=== PATIENT | male | born 1990 | race Caucasian/White ===

== ENCOUNTER 2018-09-07 12:03 | Day surgery (SDC) | payer BC ==
[~2018-09-07] VITALS: Ht 188 cm; Wt 93.0 kg
[2018-09-07 12:38] VITALS: Ht 188 cm; Wt 93.0 kg
[2018-09-07 12:40] VITALS: BP 142/83; PULSE 83; RESP 16
[2018-09-07] MEDS ORDERED: CEFAZOLIN 2 GM/50 ML (PMX) 50 ML IVPB ONE (13:00)
[2018-09-07] MEDS ORDERED: SOD CHLORIDE 0.9% 1,000 ML IV ONE (13:00)
[2018-09-07] MEDS ORDERED: BUPIVACAINE 0.25% (MPF) 30 ML INJ ONE (13:58)
[2018-09-07] MEDS ORDERED: POLYMYXIN/BACITRACIN 1L IRRIG ONE (13:58)
--- NOTE | 2018-09-07 15:17 | PREAC ---
Date/Time of Note Date/Time of Note DATE: 09/07/18 TIME: 15:16 Anesthesia Eval and Record Evaluation Time Pre-Procedure Interview DATE: 09/07/18 TIME: 15:16 Age 28 Sex male NPO: 8 hrs Preoperative diagnosis right inguinal hernia Planned procedure right inguinal hernia repair Past Medical History Past Medical History: Includes Pulm: Asthma Surgery & Anesthesia Issues No known issue Meds Anticoagulation: No Beta Cristóbal within 24 hr: No Reason Beta Cristóbal not given: Pt. not on B-Cristóbal No Active Prescriptions or Reported Meds Current Medications Sodium Chloride 1,000 ml @ 75 mls/hr [id number] ONCE IV Last administered on at 12:37; Admin Dose 75 MLS/HR; Start 09/07/18 at 13:00; Stop 09/08/18 at 02:19 Meds reviewed: Yes Allergies Coded Allergies: No Known Allergy (Unverified , 09/07/18) Allergies Reviewed: Yes Labs/Studies Labs Reviewed: Reviewed by anesthesiologist Result Diagram: 09/07/18 1230 09/07/18 1230 Laboratory Tests 09/07/18 12:30 test: N/A Pre-procedure Exam Last vitals Vital Signs Date Temp Pulse Resp B/P (MAP) Pulse Ox O2 O2 Flow FiO2 Time Delivery Rate 09/07/18 98.5 83 16 142/83 100 Room Air 12:40 (102) Airway: Adequate mouth opening, Adequate thyromental dist Mallampati: Mallampati I Teeth: Normal Lung: Normal Heart: Normal ASA Physical Status ASA physical status: 2 Emergency: None Planned Anesthetic General/MAC: LMA Planned Pain Management Parenteral pain med Pre-operative Attestations Prior to commencing anesthesia and surgery, the patient was re-evaluated, there was verification of: *The patient's identity *The results of appropriate recent lab work and preoperative vital signs *The above evaluation not changing prior to induction *Anesthetic plan, risk benefits, alternative and complications discussed with patient/family; questions answered; patient/family understands, accepts and wishes to proceed. MAICOL BELTRAN Sep 07, 2018 15:17
[2018-09-07] MEDS ORDERED: PROPOFOL 20 ML ONE (15:20)
[2018-09-07] MEDS ORDERED: LIDOCAINE 2% (SDV) 5 ML INJ ONE (15:20)
[2018-09-07] MEDS ORDERED: ROCURONIUM 50 MG INJ ONE (15:20)
[2018-09-07] MEDS ORDERED: DEXAMETHASONE 4 MG/ML 5 ML INJ ONE (15:27)
[2018-09-07] MEDS ORDERED: ONDANSETRON 4 MG INJ ONE (15:27)
[2018-09-07] MEDS ORDERED: CEFAZOLIN 1 GM INJ ONE (15:27)
[2018-09-07] MEDS ORDERED: NEOSTIGMINE 3 MG/3 ML SYRINGE ONE (16:20)
[2018-09-07] MEDS ORDERED: GLYCOPYRROLATE 0.4 MG INJ ONE (16:21)
[2018-09-07 16:25] VITALS: BP 151/71; PULSE 58; RESP 13
--- NOTE | 2018-09-07 16:27 | PAC ---
Date/Time of Note Date/Time of Note DATE: 09/07/18 TIME: 16:27 Post-Anesthesia Notes Post-Anesthesia Note Last documented vital signs Vital Signs Date Temp Pulse Resp B/P (MAP) Pulse Ox O2 O2 Flow FiO2 Time Delivery Rate 09/07/18 98.5 83 16 142/83 100 Room Air 1627 (102) Activity: WNL Respiratory function: WNL Cardiovascular function: WNL Mental status: Baseline Pain reasonably controlled: Yes Hydration appropriate: Yes Nausea/Vomiting absent: Yes MAICOL BELTRAN Sep 07, 2018 16:27
--- NOTE | 2018-09-07 16:28 | OPR ---
Date/Time of Note Date/Time of Note DATE: 09/07/18 TIME: 16:22 Operative Report Procedure Date: Sep 07, 2018 Preoperative Diagnosis right incarcerated inguinal hernia Postoperative Diagnosis same Operation/Procedure Performed 1. open right incarcerated inguinal hernia repair with ultrapro plug mesh 2. therapeutic injection of subcutaneous local anesthesia Surgeon see signature line Editor Publications none Anesthesia Type: general Estimated Blood Loss: 10 - 50 ml's Transfusion none Specimen hernia sac Grafts/Implants none Complications none Pt Condition Post Procedure: stable Indications Is a 28-year-old male with incarcerated right inguinal hernia. He request surgical repair. Risks alternatives benefits and personal were discussed with the patient. Potential complications including but not limited to bleeding infection mesh migration mesh infection chronic pain need for additional surgeries were discussed the patient. Patient expressed understanding and consents to the operation. Procedure Description Patient is taken to the OR and prepped and draped in usual sterile fashion. Surgical time was performed. IV antibiotic given. Right inguinal oblique incision made with a 10 blade. Dissection with cautery skin onto externally fascia. External oblique fascia was opened with a 15 blade. This incision extended medially inferiorly and lateral sparely with Metzenbaum scissors. Cord structures identified and encircled with a Hartline drain. Indirect hernia was identified. The hernia was reduced and the indirect hernia sac is identified and suture ligated with 0 Vicryl suture. The excess hernia sac was then excised and sent for specimen. The disc portion of the ultra pro hernia system mesh was then secured in place the running 0 Prolene from the pubic tubercle along the shelving edge of the inguinal ligament. Superiorly the disc secured to the internal oblique with interrupted 3-0 Vicryl. Onlay mesh was secured in a similar fashion with a running 0 Prolene from the pubic tubercle along the shelving edge of the inguinal ligament. Straps are created reapproximate around the cord structures with interrupted 0 Prolene to recreate the inguinal ring. Onlay mesh was secured to the internal oblique with interrupted 3-0 Vicryl. Externally fascia is closed with a running 3-0 Vicryl. Jodi's fascia was closed with interrupted 3-0 Vicryl. Skin is closed using inzorb observable skin stapler. Therapeutic contains local anesthesia was injected at the incision site. Dry dressings were applied. Ryan BYNUM Sep 07, 2018 16:28
[2018-09-07] MEDS ORDERED: KETOROLAC 30 MG INJ IV PRN (16:30)
[2018-09-07] MEDS ORDERED: HYDROCODONE/APAP (5/325) TAB PO ONE (16:30)
[2018-09-07] MEDS ORDERED: EPHEDrine 25 MG/5 ML SYG IV PRN (16:30)
[2018-09-07] MEDS ORDERED: MEPERIDINE 25 MG INJ IV PRN (16:30)
[2018-09-07] MEDS ORDERED: ALBUTEROL 0.083% (NEB) 2.5 MG/3 ML AMP HHN PRN (16:30)
[2018-09-07] MEDS ORDERED: FENTAnyl 50 MCG/ML VIAL IV PRN ×2 (16:30)
[2018-09-07] MEDS ORDERED: OXYCODONE/ACETAMINOPHEN (5/325) TAB PO PRN ×2 (16:30)
[2018-09-07] MEDS ORDERED: HYDROmorphONE 1 MG/5 ML IV SYRINGE IV PRN ×3 (16:30)
[2018-09-07] MEDS ORDERED: DIPHENHYDRAMINE 50 MG INJ IV PRN (16:30)
[2018-09-07] MEDS ORDERED: METOCLOPRAMIDE 10 MG INJ IV PRN (16:30)
[2018-09-07] MEDS ORDERED: LABETALOL HCL 20MG INJ IV PRN (16:30)
[2018-09-07] MEDS ORDERED: hydrALAzine 20 MG INJ IV PRN (16:30)
[2018-09-07] MEDS ORDERED: ONDANSETRON 4 MG INJ IV PRN (16:30)
[2018-09-07] MEDS ORDERED: HYDROmorphONE 1 MG/5 ML IV SYRINGE IV ONE (16:37)
[2018-09-07] MEDS: FENTAnyl 50 MCG/ML VIAL IV PRN ×2 (16:50→16:56)
[2018-09-07 17:20] VITALS: BP 137/77; PULSE 69; RESP 16
== END 2018-09-07 18:12 | disposition home or self-care (01) ==
LOC: SDS 12:03
PROVIDERS: ATTEND Surgery
DX: K40.30 Unilateral inguinal hernia, with obstruction, without gangrene, not specified as recurrent (principal)
CPT/HCPCS: 49507; 80053; 85025; 85610; 85730; 88302; C1781; J0690; J1100; J1170; J2405; J2710; J3010; Z7512; Z7610